=== PATIENT | female | born 1985 | race Caucasian/White ===

== ENCOUNTER 2019-04-08 20:28 | Emergency (ER) | payer SELFPAY ==
[2019-04-08] MEDS ORDERED: OLANZAPINE 5 MG TAB.RAPDIS PO ONE (22:04)
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
[2019-04-08] MEDS ORDERED: ZIPRASIDONE MESYLATE INJ/PF 20 MG SDV IM ONE (22:14)
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
[2019-04-08 23:21] LABS: APPEARANCE,URINE CLEAR; BILIRUBIN,URINE NEGATIVE (NEGATIVE); COLOR,URINE STRAW; GLUCOSE, URINE NEGATIVE (NEGATIVE); KETONES,URINE TRACE mg/dL (NEGATIVE); LEUKOCYTE ESTERASE,URINE NEGATIVE (NEGATIVE); NITRITE,URINE NEGATIVE (NEGATIVE); PROTEIN,URINE NEGATIVE (NEGATIVE); URINE SPECIFIC GRAVITY 1.003; UROBILINOGEN,URINE NEGATIVE mg/dL (<2.0)
[2019-04-08] MEDS ORDERED: LORAZEPAM INJ 2 MG/1 ML VIAL IV ONE (23:24)
[2019-04-08 23:32] LABS: URINE AMPHETAMINES SCREEN NEGATIVE; URINE BARBITURATES SCREEN NEGATIVE; URINE BENZODIAZEPINES SCREEN NEGATIVE; URINE COCAINE SCREEN NEGATIVE; URINE MARIJUANA (THC) SCREEN UNCONFIRMED POSITIVE; URINE METHADONE SCREEN NEGATIVE; URINE PHENCYCLIDINE SCREEN NEGATIVE
[2019-04-08] MEDS ORDERED: LORAZEPAM INJ 2 MG/1 ML VIAL IM ONE (23:41)
[2019-04-09 04:03] LABS: MEAN CORPUSCULAR VOLUME 89 fl (80-97)
[2019-04-09 04:23] LABS: ALBUMIN 3.8 g/dL (3.5-5.0); ALKALINE PHOSPHATASE 59 U/L (38-126); ANION GAP 8 (5-19); ASPARTATE AMINO TRANSFERASE 19 U/L (14-36); BILIRUBIN,DIRECT 0.1 mg/dL (0.0-0.4); BILIRUBIN,TOTAL 0.5 mg/dL (0.2-1.3); BLOOD UREA NITROGEN 9 mg/dL (7-20); CALCIUM 9.2 mg/dL (8.4-10.2); CARBON DIOXIDE 25 mmol/L (22-30); CHLORIDE 109 mmol/L (98-107); GLUCOSE 78 mg/dL (75-110); POTASSIUM 3.8 mmol/L (3.6-5.0); SALICYLATE 1.2 mg/dL (2.0-20.0); TOTAL PROTEIN 6.3 g/dL (6.3-8.2)
[2019-04-09 04:24] LABS: ACETAMINOPHEN < 10 ug/mL (10-30); ALCOHOL < 10 mg/dL (NONE DETECTED)
[2019-04-09 04:25] LABS: ABSOLUTE BASOPHILS # (AUTO) 0.1 10^3/uL (0.0-0.2); ABSOLUTE EOSINOPHILS # (AUTO) 0.2 10^3/uL (0.0-0.6); ABSOLUTE LYMPHOCYTES (AUTO) 2.2 10^3/uL (0.5-4.7); ABSOLUTE MONOCYTES (AUTO) 0.7 10^3/uL (0.1-1.4); EOSINOPHILS % (AUTO) 2.7 % (0-6); HEMATOCRIT 40.6 % (36.0-47.0); HEMOGLOBIN 13.5 g/dL (12.0-15.5); LYMPHOCYTES % (AUTO) 30.3 % (13-45); MEAN CORPUSCULAR HEMOGLOBIN 29.4 pg (27.0-33.4); MEAN CORPUSCULAR HGB CONC 33.1 g/dL (32.0-36.0); MONOCYTES % (AUTO) 10.1 % (3-13); PLATELET COUNT 402 10^3/uL (150-450); RED BLOOD COUNT 4.58 10^6/uL (3.72-5.28); SEGMENTED NEUTROPHILS % (AUTO) 55.9 % (42-78); TOTAL CELLS COUNTED % (AUTO) 100 %; WHITE BLOOD COUNT 7.1 10^3/uL (4.0-10.5)
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
[2019-04-09] MEDS ORDERED: BENZTROPINE MESYLATE 1 MG TABLET PO SCH (15:00)
[2019-04-09] MEDS ORDERED: OLANZAPINE 5 MG TABLET PO ONE (15:08)
[2019-04-09] MEDS ORDERED: OLANZAPINE INJ/PF 10 MG SDV IM ONE (15:20)
[2019-04-09] MEDS ORDERED: BENZTROPINE MESYLATE INJ 2 MG/2 ML AMPULE IM ONE (15:30)
[2019-04-09] MEDS: CHLORPROMAZINE HCL INJ 25 MG/1 ML AMPULE IM SCH ×2 (17:42→23:24)
[2019-04-09] MEDS: OLANZAPINE INJ/PF 10 MG SDV IM SCH (17:43)
[2019-04-09] MEDS: BENZTROPINE MESYLATE INJ 2 MG/2 ML AMPULE IM SCH (17:43)
[2019-04-09] MEDS ORDERED: OLANZAPINE 5 MG TABLET PO SCH (18:00)
--- NOTE | 2019-04-09 19:16 | EKG REPORT ---
SEVERITY:- NORMAL ECG - SINUS RHYTHM : Confirmed by: Mayra Tate MD 09-Apr-2019 19:15:37
[2019-04-10] MEDS: CHLORPROMAZINE HCL INJ 25 MG/1 ML AMPULE IM SCH ×3 (05:52→15:49)
[2019-04-10] MEDS ORDERED: OLANZAPINE 5 MG TABLET PO SCH (10:00)
[2019-04-10] MEDS: BENZTROPINE MESYLATE INJ 2 MG/2 ML AMPULE IM SCH ×2 (10:04→18:30)
[2019-04-10] MEDS: OLANZAPINE INJ/PF 10 MG SDV IM SCH (10:05)
--- NOTE | 2019-04-10 13:22 | ER Document Report ---
Doctor's Note Notes: 04/10/19 12:30 PHYSICAL EXAMINATION: GENERAL: Well-appearing and in no acute distress. HEAD: Atraumatic, normocephalic. EYES: sclera anicteric, conjunctiva are normal. ENT: nares patent. Moist mucous membranes. NECK: Normal range of motion, supple without lymphadenopathy LUNGS: CTAB and equal. No wheezes rales or rhonchi. HEART: Regular rate and rhythm without murmurs EXTREMITIES: Normal range of motion, no pitting edema. BACK: No midline tenderness, no step-off or deformity. No CVA tenderness NEUROLOGICAL: Cranial nerves grossly intact. PSYCH: Patient sitting curled up in chair with poor eye contact and some psychomotor agitation. Patient denies suicidal homicidal ideation SKIN: Warm, Dry, normal turgor, no rashes or lesions noted Reviewed patient's diagnostic evaluation as well as notes. Patient is medically clear for transfer or discharge pending mental health evaluation at this time. 04/10/19 14:00 Patient sleeping, arouses easily to voice. 04/10/19 16:52 Patient sleeping, arouses easily to voice. Will bring Thorazine dose back down to 50 every 4 at this time. 04/10/19 17:[address] Nava, will repeat EKG around 10 PM this evening to evaluate for QT prolongation 04/10/19 20:14 JAIMEE Guillen updated regarding patient plan of care. JAIMEE Monique advised of need for repeat EKG at 10 PM due to patient being on medications that can cause prolongation of the QT interval.
--- NOTE | 2019-04-10 15:14 | PSYCHOLOGICAL NOTE ---
Psych Note - Psych Note Date seen by psych provider: 04/10/19 Time seen by psych provider: 14:45 Psych Note: Patient's status is unchanged. Patient is agitated. Patient expressed frustration that medication have been given IM. Patient is requesting medications be given PO. Patient request clinician contact "[facility]" via email. Patient is alert and orientated to person, place, time and circumstance. Mood is manic with congruent affect as evidenced by psychomotor agitation. Delusions are absent during evaluation; however, patient is noted to have tangential thought processes and pressured speech. Eye contact is poor. Intellectual abilities appear to be within the average range. Attention and concentration are poor. Insight, judgment, impulse control are poor. Diagnosis: Bipolar; Manic episode Medication recommendations per [facility]'s contracted psychiatrist Dr. Tate BLACK are as follows UPDATED Change Throrazine to 50MG, as needed Add Haldol 5MG, twice a day Continue Cogentin 1MG, twice a day. Medications can be attempted PO. If patient is not compliant, please IM medications. Impression\\plan: Patient is recommended to continue under IVC. She is currently manic as evidenced by tangential thought processes, pressured speech, and psychomotor agitation. Medication recommendations have been updated. Will be reevaluated. Dr. Giraldo was consulted to care management of this patient; attending physicians in agreement with recommendations and disposition.
[2019-04-10] MEDS ORDERED: CHLORPROMAZINE HCL INJ 25 MG/1 ML AMPULE IM SCH ×2 (20:00)
[2019-04-10] MEDS ORDERED: CHLORPROMAZINE HCL INJ 25 MG/1 ML AMPULE IM PRN (20:00)
[2019-04-10] MEDS: HALOPERIDOL LACTATE INJ 5 MG/1 ML VIAL IM SCH (21:06)
--- NOTE | 2019-04-10 23:59 | EKG REPORT ---
SEVERITY:- NORMAL ECG - SINUS RHYTHM : Confirmed by: Mayra Tate MD 10-Apr-2019 23:59:01
--- NOTE | 2019-04-11 09:00 | PSYCHOLOGICAL NOTE ---
Psych Note - Psych Note Date seen by psych provider: 04/11/19 Time seen by psych provider: 07:40 Psych Note: Patient's status is unchanged. Patient requested clinician contact her brother, Gold, and friend, Buzz Snow. Patient is unable to provide contact information. Patient spoke of a "man in black who disappeared." Patient stated he was in the room. Clinician was unable to gauge if it was a Dr or a hallucination. Patient described the "man" wearing a black top like clinicians.'" Patient is alert and orientated to person, place, time and circumstance. Mood is manic with congruent affect as evidenced by psychomotor agitation. Delusions are absent during evaluation; however, patient is noted to have tangential thought processes and pressured speech. Eye contact is fair Intellectual abilities appear to be within the average range. Attention and concentration are poor. Insight, judgment, impulse control are poor. Diagnosis: Bipolar; Manic episode Medication recommendations per [facility]'s contracted psychiatrist Dr. Tate BLACK are as follows Throrazine 50MG, every 4 hours as needed Haldol 7.5MG, twice a day Cogentin 1MG, twice a day. Medications can be attempted PO. If patient is not compliant, please IM medications. Impression\\plan: Patient is recommended to continue under IVC. She is currently manic as evidenced by tangential thought processes, pressured speech, and psychomotor agitation. Medication recommendations have been updated. Will be reevaluated. Dr. Giraldo was consulted to care management of this patient; attending physicians in agreement with recommendations and disposition.
[2019-04-11] MEDS: HALOPERIDOL LACTATE INJ 5 MG/1 ML VIAL IM SCH (10:46)
[2019-04-11] MEDS: BENZTROPINE MESYLATE INJ 2 MG/2 ML AMPULE IM SCH ×2 (10:47→19:25)
[2019-04-11] MEDS ORDERED: CHLORPROMAZINE HCL INJ 25 MG/1 ML AMPULE IM PRN (12:08)
--- NOTE | 2019-04-11 12:18 | ER Document Report ---
Doctor's Note Notes: 04/11/19 12:03 Chart reviewed, patient rounded on. She is pacing in room although she is calm when I talked her. She reports she is very frustrated that she still here. She also reports she does not like her IM injections. Denies suicidal or homicidal ideations at this time. Sita, the mental health provider, is requesting medication changes. She advises Thorazine 50 mg as needed now as well as Haldol increased from 5 mg to 7.5 mg twice daily and Cogentin 1 mg increase daily to twice daily. PHYSICAL EXAMINATION: GENERAL: Well-appearing and in no acute distress HEAD: Atraumatic, normocephalic. EYES: Pupils equal round and reactive to light, extraocular movements intact, sclera anicteric, conjunctiva are normal. ENT: nares patent, oropharynx clear without exudates. Moist mucous membranes. NECK: Normal range of motion, supple without lymphadenopathy LUNGS: CTAB and equal. No wheezes rales or rhonchi. HEART: Regular rate and rhythm without murmurs ABDOMEN: Soft, no tenderness. No guarding, no rebound EXTREMITIES: Normal range of motion, no pitting edema. No cyanosis. NEUROLOGICAL: Cranial nerves grossly intact. Normal sensory/motor exams. PSYCH: Normal mood, normal affect. SKIN: Warm, Dry, normal turgor, no rashes or lesions noted 04/11/19 19:07 Patient is been calm all day cooperative taking p.o. medications. 04/11/19 20:09 Report given to JAIMEE Guillen
[2019-04-11] MEDS: BENZTROPINE MESYLATE 1 MG TABLET PO SCH (19:20)
[2019-04-11] MEDS: HALOPERIDOL 5 MG TABLET PO SCH (19:21)
[2019-04-11] MEDS ORDERED: IBUPROFEN 600 MG TABLET PO ONE (21:47)
[2019-04-12] MEDS ORDERED: HYDROXYZINE PAMOATE 25 MG CAPSULE PO ONE (03:42)
[2019-04-12] MEDS ORDERED: LORAZEPAM 1 MG TABLET PO ONE (05:00)
--- NOTE | 2019-04-12 08:09 | PSYCHOLOGICAL NOTE ---
Psych Note - Psych Note Date seen by psych provider: 04/12/19 Time seen by psych provider: 08:05 Psych Note: Patient's status is unchanged. Per report from nursing staff, patient has to be frequently redirected back to her room. Patient informed clinician she would lik e to go out and smoke. Patient inquired about discharge. Clinician replied there is no timeframe for discharge, at this time. Patient mentioned the flu vaccine medication care manager clinician's badge, and then when clinician left room, clinician observed patient procure a mask and used it to tie her hair. Referrals sent to [facility]; Julien Benson; Bar[facility] Jeffries and [facility] for placement on 04/12/2019 at 08:08. Patient is alert and orientated to person, place, time and circumstance. Mood is manic with congruent affect as evidenced by psychomotor agitation. Delusions are absent during evaluation; however, patient is noted to have tangential thought processes and pressured speech. Eye contact is fair Intellectual abilities appear to be within the average range. Attention and concentration are poor. Insight, judgment, impulse control are poor. Diagnosis: Bipolar; Manic episode Medication recommendations per [facility]'s contracted psychiatrist Dr. Tate BLACK are as follows Updated Discontinue Haldol 7.5MG (IM), twice a day Change Throrazine 75MG (IM), every 6 hours scheduled Continue Cogentin 1MG (IM), twice a day. Add Vistaril 50MG (IM), every 4 hours as needed Add Clonidine 0.1MG, 24HR Patch Please note medications are to be IM. Impression\plan: Patient is recommended to continue under IVC. She is currently manic as evidenced by tangential thought processes, pressured speech, and psychomotor agitation. Medication recommendations have been updated. Will be reevaluated. Dr. Giraldo was consulted to care management of this patient; attending physicians in agreement with recommendations and disposition.
[2019-04-12] MEDS: BENZTROPINE MESYLATE 1 MG TABLET PO SCH ×2 (10:00→19:02)
[2019-04-12] MEDS: HALOPERIDOL 5 MG TABLET PO SCH ×2 (10:00→19:01)
--- NOTE | 2019-04-12 10:51 | ER Document Report ---
Doctor's Note Notes: 04/12/19 10:49 As the rounding provider this AM, I assessed the patient's labs, vitals, and records. No concerning findings this morning. Patient denies any acute complaints. Patient continues to be pacing around the room and she is no longer requiring restraints. It appears the patient is medically stable for transfer or discharge and mental health wishes to discharge patient with close follow-up services in place.
[2019-04-12] MEDS ORDERED: CHLORPROMAZINE HCL INJ 25 MG/1 ML AMPULE IM ONE (19:38)
[2019-04-12] MEDS ORDERED: DIPHENHYDRAMINE HCL 50 MG CAPSULE PO ONE (19:39)
[2019-04-12] MEDS: CHLORPROMAZINE HCL INJ 25 MG/1 ML AMPULE IM SCH (20:09)
[2019-04-13] MEDS: CHLORPROMAZINE HCL INJ 25 MG/1 ML AMPULE IM SCH ×4 (01:41→20:19)
[2019-04-13] MEDS: HYDROXYZINE HCL INJ 50 MG/1 ML VIAL IM PRN ×2 (01:41→11:19)
[2019-04-13] MEDS: BENZTROPINE MESYLATE 1 MG TABLET PO SCH ×2 (09:08→17:40)
--- NOTE | 2019-04-13 11:45 | ER Document Report ---
Doctor's Note Notes: 04/13/19 11:44 As the rounding provider this AM, I assessed the patient's labs, vitals, and records. No concerning findings this morning. Patient still has not slept at all and is asking for something to help her sleep. I instructed the nurse to give her the Vistaril as needed dosing. Still awaiting placement. Patient is cleared for disposition by psychiatry. It appears the patient is medically stable for transfer.
[2019-04-13] MEDS ORDERED: ACETAMINOPHEN 325 MG TABLET PO ONE (20:07)
[2019-04-13] MEDS: CLONIDINE 0.1 MG/24 HR PATCH.TDWK TD SCH (20:19)
[2019-04-14] MEDS: CHLORPROMAZINE HCL INJ 25 MG/1 ML AMPULE IM SCH ×4 (02:15→14:24)
[2019-04-14] MEDS ORDERED: CHLORPROMAZINE HCL 50 MG TABLET PO ONE ×2 (03:56→14:13)
[2019-04-14] MEDS ORDERED: ACETAMINOPHEN 325 MG TABLET PO ONE (08:29)
[2019-04-14] MEDS: HYDROXYZINE HCL INJ 50 MG/1 ML VIAL IM PRN (09:13)
[2019-04-14] MEDS: CLONIDINE 0.1 MG/24 HR PATCH.TDWK TD SCH (09:14)
[2019-04-14] MEDS: BENZTROPINE MESYLATE 1 MG TABLET PO SCH (09:16)
--- NOTE | 2019-04-14 12:35 | ER Document Report ---
Doctor's Note Notes: 04/14/19 12:34 As the rounding provider this AM, I assessed the patient's labs, vitals, and records. No concerning findings this morning. Patient denies any acute complaints to me, but did complain of a headache to the morning physician prior to my arrival and was given Tylenol 975 mg with good response. Patient is cleared for disposition by psychiatry and placement is pending.
[2019-04-14 19:16] VITALS: BP 112/65
== END 2019-04-14 19:08 | disposition home or self-care (01) ==
LOC: ER 20:28
DX: F31.9 Bipolar disorder, unspecified (principal); R45.851 Suicidal ideations; R45.6 Violent behavior; Z78.1 Physical restraint status; F12.10 Cannabis abuse, uncomplicated; R51 Headache; Z59.0 Homelessness; Z75.1 Person awaiting admission to adequate facility elsewhere
CPT/HCPCS: 93005 ×2; 99285; 96372; 96374; 36415; 80307 ×4; 84703; 85025; 80053; 81001; 93010 ×2; J0515 ×3; J3230 ×6; J3490 ×3; J1630 ×2; J3410 ×2; J2060; J3486